=== PATIENT | male | born 1990 | race Caucasian/White ===

== ENCOUNTER 2017-08-06 05:42 | Emergency (ER) | payer MEDICAID ==
[~2017-08-06] VITALS: Ht 180.3 cm; Wt 84.9 kg
[~2017-08-06 05:42] MED LIST: HYDR-569 PO; IBUP-1986 PO; LISI-600 PO; NOR5T PO
[2017-08-06 06:08] LABS: BASOPHILS % (AUTO) 0.5 % (0-1); EOSINOPHILS # (AUTO) 0.2 X10'3 (0-0.9); HEMATOCRIT 42.3 % (42.0-52.0); HEMOGLOBIN 15.1 g/dl (14.0-17.9); LYMPHOCYTES # (AUTO) 2.8 X10'3 (1.1-4.8); LYMPHOCYTES % (AUTO) 38.1 % (21-51); MEAN CORPUSCULAR HEMOGLOBIN 30.1 PG (27.0-31.0); MEAN CORPUSCULAR HGB CONC 35.7 % (33.0-36.5); MEAN CORPUSCULAR VOLUME 84.1 FL (78-98); MEAN PLATELET VOLUME 6.9 FL (7.4-10.4); MONOCYTES # (AUTO) 0.5 X10'3 (0-0.9); MONOCYTES % (AUTO) 6.8 % (2-12); NEUTROPHILS # (AUTO) 3.8 X10'3 (1.8-7.7); NEUTROPHILS % (AUTO) 51.6 % (42-75); PLATELET COUNT 273 X10'3 (140-440); RED BLOOD COUNT 5.03 X10'6 (4.70-6.10); RED CELL DISTRIBUTION WIDTH 12.9 % (11.5-14.5); WHITE BLOOD COUNT 7.4 X10'3 (4.5-11.0)
[2017-08-06 06:16] LABS: PROTHROMBIN TIME 10.2 SECONDS (9.0-12.0)
[2017-08-06 06:29] LABS: ALANINE AMINOTRANSFERASE 270 U/L (12-78); ALBUMIN 3.9 G/DL (3.4-5.0); ALBUMIN/GLOBULIN RATIO 1.1 (1.1-1.5); ALKALINE PHOSPHATASE 60 IU/L (46-116); ANION GAP 14 (8-16); ASPARTATE AMINO TRANSFERASE 101 U/L (10-37); BILIRUBIN,TOTAL 0.4 MG/DL (0.1-1.0); BLOOD UREA NITROGEN 10 MG/DL (7-18); BUN/CREATININE RATIO 10.6 (5.4-32.0); CALCIUM 8.7 MG/DL (8.5-10.1); CHLORIDE 107 MMOL/L (99-107); CREATININE 0.94 MG/DL (0.60-1.10); GLUCOSE 102 MG/DL (70-104); LIPASE 139 U/L (73-393); POTASSIUM 3.8 MMOL/L (3.5-5.1); SODIUM 143 MMOL/L (135-145); TOTAL CARBON DIOXIDE 22.2 MMOL/L (24-32); TOTAL PROTEIN 7.5 G/DL (6.4-8.2); eGFR > 90 ML/MIN
[2017-08-06 06:39] LABS: CLARITY,URINE CLEAR (Clear); COLOR,URINE YELLOW (Yellow); GLUCOSE, URINE NEGATIVE (Neg); KETONES,URINE NEGATIVE (Neg); LEUKOCYTE ESTERASE ,URINE NEGATIVE (Neg); NITRITES, URINE NEGATIVE (Neg); OCCULT BLOOD,URINE NEGATIVE (Neg); PROTEIN,URINE NEGATIVE (Neg); UROBILINOGEN,URINE 0.2 E.U/dL (0.2-1.0)
[2017-08-06 06:47] LABS: UA COLLECTION TYPE CLN CATCH MIDSTREAM
[2017-08-06] MEDS ORDERED: glycopyrrolate 0.2mg/ml inj IV ONE (06:55)
[2017-08-06] MEDS ORDERED: ketorolac trometh. 30mg/ml inj. IV ONE (06:55)
[2017-08-06] MEDS ORDERED: normal saline 1000ML IV soln IVB ONE (07:00)
[2017-08-06] MEDS ORDERED: DICY10CA88 PO (07:11)
[2017-08-06] MEDS ORDERED: ONDA4TAB12 PO (07:11)
[2017-08-06] MEDS ORDERED: OMEP40CA37 PO (07:33)
[2017-08-06 08:16] VITALS: BP 141/95
== END 2017-08-06 08:18 | disposition home or self-care (01) ==
LOC: ER 05:43
DX: R10.13 Epigastric pain (principal); R11.2 Nausea with vomiting, unspecified; R19.7 Diarrhea, unspecified; F17.210 Nicotine dependence, cigarettes, uncomplicated; F12.10 Cannabis abuse, uncomplicated; I10 Essential (primary) hypertension; G89.29 Other chronic pain; Z79.899 Other long term (current) drug therapy
CPT/HCPCS: 36415; 76700; 80053; 81003; 83690; 85025; 85610; 96361; 96374; 96375; 99285; J1885; J3490; J7030

== ENCOUNTER 2017-12-17 11:39 | Emergency (ER) | payer MEDICAID ==
[~2017-12-17] VITALS: Ht 610.5 cm; Wt 96.9 kg
[~2017-12-17 11:39] MED LIST changes: +ONDA4TAB12 PO
[2017-12-17 11:41] VITALS: BP 155/111
== END 2017-12-17 14:06 | disposition home or self-care (01) ==
LOC: ER 11:39
DX: F07.81 Postconcussional syndrome (principal); R11.10 Vomiting, unspecified; I10 Essential (primary) hypertension; G89.29 Other chronic pain; F12.90 Cannabis use, unspecified, uncomplicated; Z79.899 Other long term (current) drug therapy; W01.0XXA Fall on same level from slipping, tripping and stumbling without subsequent striking against object, initial encounter; Y93.89 Activity, other specified; Y92.008 Other place in unspecified non-institutional (private) residence as the place of occurrence of the external cause; Y99.8 Other external cause status
CPT/HCPCS: 70450; 99284

== ENCOUNTER 2018-12-28 10:49 | Emergency (ER) | payer MEDICAID ==
[~2018-12-28] VITALS: Ht 180.3 cm; Wt 100.0 kg
[~2018-12-28 10:49] MED LIST changes: +HYDR-4383 PO; -HYDR-569 PO
[2018-12-28 11:30] VITALS: BP 167/102
[2018-12-28] MEDS ORDERED: CEPH500C5 PO (12:46)
[2018-12-28] MEDS ORDERED: TRAM50TA2 PO (12:47)
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
== END 2018-12-28 13:13 | disposition home or self-care (01) ==
LOC: MERGE 10:49 → ER 10:49
DX: S93.492A Sprain of other ligament of left ankle, initial encounter (principal); S40.212A Abrasion of left shoulder, initial encounter; S50.312A Abrasion of left elbow, initial encounter; S30.811A Abrasion of abdominal wall, initial encounter; S80.812A Abrasion, left lower leg, initial encounter; I10 Essential (primary) hypertension; Z79.2 Long term (current) use of antibiotics; Z79.899 Other long term (current) drug therapy; X58.XXXA Exposure to other specified factors, initial encounter; Y93.89 Activity, other specified; Y92.89 Other specified places as the place of occurrence of the external cause; Y99.8 Other external cause status
CPT/HCPCS: 73564; 73610; 73630; 99283

== ENCOUNTER 2019-10-04 11:57 | Emergency (ER) | payer MEDICAID ==
[~2019-10-04] VITALS: Ht 182.9 cm; Wt 102.3 kg
[2019-10-04 12:15] VITALS: BP 165/113
[2019-10-04] MEDS ORDERED: NAPR-56 PO (13:05)
== END 2019-10-04 13:07 | disposition home or self-care (01) ==
LOC: ER 11:57
DX: S43.52XA Sprain of left acromioclavicular joint, initial encounter (principal); S80.212A Abrasion, left knee, initial encounter; M25.522 Pain in left elbow; I10 Essential (primary) hypertension; G89.29 Other chronic pain; F12.90 Cannabis use, unspecified, uncomplicated; Z79.899 Other long term (current) drug therapy; X50.9XXA Other and unspecified overexertion or strenuous movements or postures, initial encounter; Y93.89 Activity, other specified; Y92.89 Other specified places as the place of occurrence of the external cause; Y99.8 Other external cause status
CPT/HCPCS: 73030; 73080; 99284

== ENCOUNTER 2023-12-09 09:05 | Emergency (ER) | payer MEDICAID ==
[~2023-12-09] VITALS: Ht 182.9 cm; Wt 106.5 kg
[~2023-12-09 09:05] MED LIST changes: +CEPH-585 PO; -LISI-600 PO; +LISI20TA28 PO; +ONDA-243 PO; -ONDA4TAB12 PO
[2023-12-09 09:07] VITALS: TEMP 98
[2023-12-09 10:29] VITALS: BP 152/125; PULSE 84; RESP 16; O2SAT 96
== END 2023-12-09 10:31 | disposition home or self-care (01) ==
LOC: ER 09:06
DX: S93.601A Unspecified sprain of right foot, initial encounter (principal); S96.911A Strain of unspecified muscle and tendon at ankle and foot level, right foot, initial encounter; I10 Essential (primary) hypertension; G89.29 Other chronic pain; F12.90 Cannabis use, unspecified, uncomplicated; Z72.89 Other problems related to lifestyle; Z87.81 Personal history of (healed) traumatic fracture; Z79.2 Long term (current) use of antibiotics; Z79.899 Other long term (current) drug therapy; X50.1XXA Overexertion from prolonged static or awkward postures, initial encounter; Y93.89 Activity, other specified; Y92.89 Other specified places as the place of occurrence of the external cause; Y99.8 Other external cause status
CPT/HCPCS: 73630; 99284

== ENCOUNTER 2024-07-27 06:15 | Outpatient (CLI) | payer MEDICAID ==
[~2024-07-27 06:15] MED LIST changes: -CEPH-585 PO
[2024-07-27] MEDS ORDERED: LIDOcaine 1% 30ml preserv. free vial ONE (06:42)
[2024-07-27] MEDS ORDERED: iohexol 300 MG/1 ML 50ml polymer ONE (06:42)
[2024-07-27] MEDS ORDERED: LIDOcaine 1%/PF 5ML 10 MG/ML VIAL ONE (06:42)
[2024-07-27] MEDS ORDERED: GADOTERATE MEGLUMINE 7.5 MMOL/15 ML VIAL IV ONE (06:42)
== END 2024-07-27 23:59 | disposition home or self-care (01) ==
LOC: RAD 06:15
PROVIDERS: ATTEND Family Medicine Sports Medicine
DX: M23.241 Derangement of anterior horn of lateral meniscus due to old tear or injury, right knee (principal); M77.8 Other enthesopathies, not elsewhere classified; M17.11 Unilateral primary osteoarthritis, right knee; M79.4 Hypertrophy of (infrapatellar) fat pad; M76.51 Patellar tendinitis, right knee
CPT/HCPCS: 27369; 73722; 77002; A9575; J2003; J3490; Q9967